=== PATIENT | female | born 1935 ===

== ENCOUNTER 2016-09-30 12:41 | Emergency (ER) | payer MEDICARE, OTHER ==
[2016-09-30 12:42] VITALS: PULSE 63
[2016-09-30 12:46] VITALS: BMI 30.4
[2016-09-30 12:51] VITALS: TEMP 97.8; O2SAT 98
--- NOTE | 2016-09-30 13:59 | C.PDOC ---
History Of Present Illness 81 y/o female presents to the ED complaining of right lower extremity pain x 1 week. She states that she tripped and fell, landing on her right knee one week ago and she has been experiencing persistent pain and bruising ever since. Denies head injury, chest pain, shortness of breath, dizziness, or loss of consciousness at any time. Notes she is on Xarelto. Chief Complaint (Nursing): Lower Extremity Problem/Injury History Per: Patient History/Exam Limitations: no limitations Onset/Duration Of Symptoms: Days (7), Persistent Current Symptoms Are (Timing): Still Present Recent travel outside of the [place]: No Past Medical History Reviewed: Historical Data, Nursing Documentation, Vital Signs Vital Signs: Last Vital Signs Temp 97.8 F 09/30/16 12:47 Pulse 82 09/30/16 14:54 Resp 18 09/30/16 14:54 BP 142/88 09/30/16 14:54 Pulse Ox 98 09/30/16 14:54 - Medical History PMH: Atrial Fibrillation, Cardia Arrhythmia, Hiatal Hernia, HTN, Hyperthyroidism , Hypothyroidism Surgical History: Hernia Repair Family History: States: Unknown Family Hx - Social History Hx Tobacco Use: No Hx Alcohol Use: No Hx Substance Use: No - Immunization History Hx Tetanus Toxoid Vaccination: No Hx Influenza Vaccination: No Hx Pneumococcal Vaccination: No Review Of Systems Except As Marked, All Systems Reviewed And Found Negative. Cardiovascular: Negative for: Chest Pain Respiratory: Negative for: Shortness of Breath Musculoskeletal: Positive for: Other (right knee pain and bruising) Neurological: Negative for: Dizziness, Other (LOC) Physical Exam - Physical Exam Appears: Non-toxic, No Acute Distress Skin: Warm, Dry Head: Atraumatic, Normacephalic Eye(s): bilateral: Normal Inspection, PERRL, EOMI Neck: Normal ROM, Supple Chest: Symmetrical Cardiovascular: Rhythm Regular Respiratory: Normal Breath Sounds, No Rales, No Rhonchi, No Wheezing Gastrointestinal/Abdominal: Normal Exam, Bowel Sounds, Soft, No Tenderness Extremity: Tenderness (point tenderness to right patella and distal tibia area) , No Deformity, Swelling (2+ lower extremity edema bilaterally), Other ( ecchymosis to anterior portion of the distal right knee with various areas of healing; no abrasions or open wounds) Pulses: Left Dorsalis Pedis: Normal, Right Dorsalis Pedis: Normal Neurological/Psych: Oriented x3, Normal Speech, Normal Cognition, Normal Sensation ED Course And Treatment O2 Sat by Pulse Oximetry: 98 (ra) Pulse Ox Interpretation: Normal - Other Rad X-Ray, Right Ankle X-Ray: Viewed By Me, Read By Radiologist (Jaun Alejo MD) Interpretation: IMPRESSION: Soft tissue swelling without acute articular or osseous abnormality. X-Ray, Right Knee X-Ray: Viewed By Me, Read By Radiologist (Jaun Alejo MD) Interpretation: IMPRESSION: Diffuse edema visualized right lower extremity. No acute findings. X-Ray, Right Tibia Fibula X-Ray: Viewed By Me, Read By Radiologist (Jaun Alejo MD) Interpretation: IMPRESSION: Negative study for acute fracture/acute osseous or articular process. Progress Note: Plan: Right Knee X-Ray, Right Ankle X-Ray, Right Tibia Fibula X- Ray, Motrin PO. Disposition - Disposition Referrals: [facility] Silas Weber, [Non-Staff] - Disposition: HOME/ ROUTINE Disposition Time: 14:50 Condition: GOOD Additional Instructions: Thank you for letting us take care of you today. Your provider was Dr. Watson. You were treated for leg pain. The emergency medical care you received today was directed at your acute symptoms. If you were prescribed any medication, please fill it and take as directed. It may take several days for your symptoms to resolve. Return to the Emergency Department if your symptoms worsen, do not improve, or if you have any other problems. Please contact your doctor or call one of the physicians/clinics you have been referred to that are listed on the Patient Visit Information form that is included in your discharge packet. Bring any paperwork you were given at discharge with you along with any medications you are taking to your follow up visit. Our treatment cannot replace ongoing medical care by a primary care provider (PCP) outside of the emergency department. Thank you for allowing the [facility] team to be part of your care today. Follow up with your doctor in 3-4 days to be re-evaluated. Continue taking your medication as prescribed. Prescriptions: Ibuprofen [Motrin] 600 mg PO Q6 PRN #20 tab PRN Reason: Pain, Moderate (4-7) Instructions: Knee Pain (ED) - Clinical Impression Clinical Impression: Leg pain - Scribe Statement The provider has reviewed the documentation as recorded by the Scribe (Heaven Obrien) Provider Attestation: All medical record entries made by the Scribe were at my direction and personally dictated by me. I have reviewed the chart and agree that the record accurately reflects my personal performance of the history, physical exam, medical decision making, and the department course for this patient. I have also personally directed, reviewed, and agree with the discharge instructions and disposition.
--- NOTE | 2016-09-30 14:38 | RAD ---
PROCEDURE: Right Ankle Radiographs. HISTORY: Unspecified lower extremity trauma 1 week ago. COMPARISON: None FINDINGS: BONES: No acute fractures. Plantar calcaneal spur. JOINTS: Normal. No osteoarthritis. Ankle mortise maintained. Talar dome intact SOFT TISSUES: Diffuse edema of visualize soft tissues from the mid calf through the foot. OTHER FINDINGS: None. IMPRESSION: Soft tissue swelling without acute articular or osseous abnormality.
--- NOTE | 2016-09-30 14:39 | RAD ---
PROCEDURE: Right Knee Radiographs. HISTORY: r/o fx COMPARISON: September 30, 2016. FINDINGS: BONES: Proliferative hypertrophic changes emanating from the femoral condyle and tibial plateau JOINTS: Medial lateral compartment degenerative change with relative sparing of the patellofemoral joint. JOINT EFFUSION: None. OTHER FINDINGS: Diffuse lower extremity edema IMPRESSION: Diffuse edema visualized right lower extremity. No acute findings.
--- NOTE | 2016-09-30 14:40 | RAD ---
PROCEDURE: HISTORY: r/o fx COMPARISON: September 30, 2016. TECHNIQUE: Standard protocol for this study/examination. FINDINGS: Unremarkable visualized osseous structures including tibia and fibula. Diffuse lower extremity edema. IMPRESSION: Negative study for acute fracture/acute osseous or articular process.
[2016-09-30 14:55] VITALS: BP 142/88; PULSE 82; RESP 18
== END 2016-09-30 15:27 | disposition home or self-care (01) ==
LOC: C.ER 12:41
DX: M25.561 Pain in right knee (principal)

== ENCOUNTER 2016-11-23 11:13 | Emergency (ER) | payer MEDICARE, OTHER ==
[2016-11-23 11:13] VITALS: PULSE 63; BMI 30.4
[2016-11-23 11:17] VITALS: RESP 18; TEMP 98.2
--- NOTE | 2016-11-23 11:39 | C.PDOC ---
History Of Present Illness Patient is a 81 y/o female that presents to the ED for evaluation of dysuria and urinary frequency for the last 2 days. Patient reports having similar symptoms in the past, and was diagnosed with UTI at the time. Otherwise, denies any fever, vomiting, back pain, vaginal discharge, vaginal bleeding, or any other associated symptoms at this time. Language barrier, dog food shredder operator was used. Time Seen by Provider: 11/23/16 11:29 Chief Complaint (Nursing): Abdominal Pain History Per: Patient History/Exam Limitations: language barrier (dog food shredder operator used) Onset/Duration Of Symptoms: Days (2) Current Symptoms Are (Timing): Still Present Radiation Of Pain To:: None Associated Symptoms: Urinary Symptoms. denies: Fever, Chills, Nausea, Vomiting , Diarrhea, Loss Of Appetite, Back Pain, Chest Pain, Constipation Exacerbating Factors: None Alleviating Factors: None Recent travel outside of the [place]: No Additional History Per: Patient Abnormal Vaginal Bleeding: No Past Medical History Reviewed: Historical Data, Nursing Documentation, Vital Signs Vital Signs: Last Vital Signs Temp 98.2 F 11/23/16 11:15 Pulse 80 11/23/16 13:01 Resp 18 11/23/16 13:01 BP 138/74 11/23/16 13:01 Pulse Ox 97 11/23/16 13:36 - Medical History PMH: Atrial Fibrillation, Cardia Arrhythmia, Hiatal Hernia, HTN, Hyperthyroidism , Hypothyroidism Denies: Chronic Kidney Disease Surgical History: Hernia Repair Family History: States: Unknown Family Hx - Social History Hx Tobacco Use: No Hx Alcohol Use: No Hx Substance Use: No - Immunization History Hx Tetanus Toxoid Vaccination: No Hx Influenza Vaccination: No Hx Pneumococcal Vaccination: No Review Of Systems Except As Marked, All Systems Reviewed And Found Negative. Constitutional: Negative for: Fever, Chills Gastrointestinal: Negative for: Nausea, Vomiting, Abdominal Pain, Diarrhea, Constipation Genitourinary: Positive for: Dysuria, Frequency. Negative for: Incontinence, Hematuria, Vaginal Discharge, Vaginal Bleeding, Pelvic Pain Musculoskeletal: Negative for: Back Pain Physical Exam - Physical Exam Appears: Non-toxic, No Acute Distress Skin: Normal Color, Warm, Dry Head: Atraumatic, Normacephalic Eye(s): bilateral: Normal Inspection, EOMI Nose: Normal Neck: Normal ROM, Supple Chest: Symmetrical, No Tenderness Cardiovascular: Rhythm Regular, No Murmur Respiratory: Normal Breath Sounds, No Rales, No Rhonchi, No Wheezing Gastrointestinal/Abdominal: Soft, Tenderness (suprapubic), No Guarding, No Rebound Back: Normal Inspection, No CVA Tenderness Extremity: Normal ROM Neurological/Psych: Oriented x3, Normal Speech ED Course And Treatment - Laboratory Results Result Diagrams: 11/23/16 11:51 11/23/16 11:51 O2 Sat by Pulse Oximetry: 97 (on RA) Pulse Ox Interpretation: Normal Progress Note: Previous visit from 08/13/16 reviewed which shows diagnosis of UTI , cultures show sensitivity to Macrobid , grew ecoli. Labs ordered and reviewed. Patient was given Toradol, Macrobid, and Pyridium. On re-eval, pt is resting comfortably, no acuted distress. Abdomen remains soft. Notes improvement of symptoms. Discussed concern for frequent UTI, and instructed patient to follow up with urologist. Disposition - Disposition Referrals: Ray Swann MD [Staff Provider] - Disposition: HOME/ ROUTINE Disposition Time: 12:39 Condition: STABLE Additional Instructions: Vaya a cintron mdico o la clnica en 2-5 delacruz sin falta, para mas evaluacin. Formoso los medicamentos isa indicado. Volver a la christiana de emergencia en cualquier momento si los sntomas persisten o empeoran. 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 - Scribe Statement The provider has reviewed the documentation as recorded by the Christine Nath All medical record entries made by the Christine were at my direction and personally dictated by me. I have reviewed the chart and agree that the record accurately reflects my personal performance of the history, physical exam, medical decision making, and the department course for this patient. I have also personally directed, reviewed, and agree with the discharge instructions and disposition.
[2016-11-23 12:03] LABS: CHLORIDE 100 mmol/L (98-107); EOS # 0.1 K/uL (0.0-0.7); LYMPH # 1.3 K/uL (1.0-4.3); MEAN CORPUSCULAR HEMOGLOBIN 30.3 pg (27.0-31.0); MONO # 0.8 K/uL (0.0-0.8); POTASSIUM 4.3 mmol/L (3.6-5.2); SODIUM 136 mmol/L (132-148)
[2016-11-23 12:05] LABS: GFR AFRICAN-AMERICAN > 60
[2016-11-23 12:06] LABS: ALB/GLOB RATIO 1.6 (1.0-2.1); ALKALINE PHOSPHATASE 99 U/L (38-126); ALT/SGPT 28 U/L (9-52); AST/SGOT 22 U/L (14-36); BILIRUBIN,TOTAL 1.2 mg/dL (0.2-1.3); BLOOD UREA NITROGEN 19 mg/dL (7-17); CALCIUM 9.6 mg/dl (8.6-10.4); CARBON DIOXIDE 27 mmol/L (22-30); GLUCOSE,RANDOM 84 mg/dL (65-105); TOTAL PROTEIN 6.9 g/dL (6.3-8.3)
[2016-11-23 12:08] LABS: BASO # 0.1 K/uL (0.0-0.2); BASO % 0.6 % (0.0-2.0); EOS % 1.4 % (0.0-4.0); HEMATOCRIT 44.5 % (34.0-47.0); LYMPH % 14.6 % (20.0-40.0); MEAN CELL VOLUME 91.6 fL (81.0-99.0); MEAN CORPUSCULAR HGB CONC 33.1 g/dL (33.0-37.0); MEAN PLATELET VOLUME 9.8 fL (7.2-11.7); MONO % 9.3 % (0.0-10.0); NRBC % 0.1 % (0.0-2.0); RED CELL DISTRIBUTION WIDTH 13.6 % (11.5-14.5)
[2016-11-23 12:35] LABS: RBC URINE 21 /hpf (0-3); URINE BACTERIA RARE (<OCC); URINE BILIRUBIN NEGATIVE (NEGATIVE); URINE BLOOD 2+ (NEGATIVE); URINE COLOR Yellow (YELLOW); URINE GLUCOSE (UA) NORMAL (Normal); URINE KETONE NEGATIVE (NEGATIVE); URINE LEUKOCYTE ESTERASE 3+ Leu/uL (Negative); URINE PROTEIN NEGATIVE (NEGATIVE); URINE UROBILINOGEN NORMAL mg/dL (0.2-1.0); WBC CLUMPS FEW /hpf; WBC URINE 1001 /hpf (0-5)
[2016-11-23 13:02] VITALS: BP 138/74; PULSE 80
[2016-11-23 13:25] VITALS: O2SAT 97
== END 2016-11-23 13:02 | disposition home or self-care (01) ==
LOC: C.ER 11:13
DX: N39.0 Urinary tract infection, site not specified (principal); B96.20 Unspecified Escherichia coli [E. coli] as the cause of diseases classified elsewhere
CPT/HCPCS: 80053; 81001; 85025; 87086; 96374; 99284; J1885

== ENCOUNTER 2017-04-02 10:40 | Emergency (ER) | payer MEDICARE, OTHER ==
[2017-04-02 10:40] VITALS: PULSE 63
[2017-04-02 10:44] VITALS: BMI 29.5
[2017-04-02 10:47] VITALS: TEMP 98.1
[2017-04-02] MEDS ORDERED: Sodium Chloride 0.9% 1,000 ML IV ONE (11:11)
[2017-04-02] MEDS ORDERED: Iohexol 240 (50 ml) PO STA (11:11)
--- NOTE | 2017-04-02 11:11 | C.PDOC ---
History Of Present Illness 81 yr old female presents to the ER RUQ pain for the past several days. Patient states the pain is waxing/waning and localized, associated with nausea. Patient denies fever, chest pain, SOB, vomiting, diarrhea, constipation, dysuria, incontinence, back pain, weakness or numbness. RUQ PAIN X SEV DAYS. WAX WANE LOCALIZED. +NAUSEA NO FEVER. PSH APPY EXAM MILD DIST NONTOXIC HEENT ANICTERIC MMM ABD +RUQ/EPIG TEND SOFT NO R/G REMAINDER NEG Time Seen by Provider: 04/02/17 11:03 Chief Complaint (Nursing): Abdominal Pain History Per: Patient History/Exam Limitations: no limitations Onset/Duration Of Symptoms: Days, Waxing/Waning Current Symptoms Are (Timing): Still Present Location Of Pain/Discomfort: RUQ Past Medical History Reviewed: Historical Data, Nursing Documentation, Vital Signs Vital Signs: Last Vital Signs Temp 98.1 F 04/02/17 10:45 Pulse 70 04/02/17 11:30 Resp 18 04/02/17 11:30 BP 163/79 H 04/02/17 11:30 Pulse Ox 97 04/02/17 12:10 - Medical History PMH: Atrial Fibrillation, Cardia Arrhythmia, Hiatal Hernia, HTN, Hyperthyroidism , Hypothyroidism Surgical History: Hernia Repair Family History: States: No Known Family Hx - Social History Hx Tobacco Use: No Hx Alcohol Use: No Hx Substance Use: No - Immunization History Hx Tetanus Toxoid Vaccination: No Hx Influenza Vaccination: No Hx Pneumococcal Vaccination: No Review Of Systems Except As Marked, All Systems Reviewed And Found Negative. Constitutional: Negative for: Fever Cardiovascular: Negative for: Chest Pain Respiratory: Negative for: Shortness of Breath Gastrointestinal: Positive for: Nausea, Abdominal Pain (RUQ). Negative for: Vomiting, Diarrhea, Constipation Genitourinary: Negative for: Dysuria, Incontinence Musculoskeletal: Negative for: Back Pain Neurological: Negative for: Weakness, Numbness Physical Exam - Physical Exam Appears: Non-toxic, In Acute Distress (Mild) Skin: Warm, Dry, No Rash Head: Atraumatic, Normacephalic Eye(s): bilateral: Normal Inspection, PERRL, EOMI Oral Mucosa: Moist Chest: Symmetrical, No Tenderness Cardiovascular: Rhythm Regular, No Murmur Respiratory: Normal Breath Sounds, No Rales, No Rhonchi, No Stridor, No Wheezing Gastrointestinal/Abdominal: Soft, Tenderness (RUQ/Epigastric tednerness), No Guarding, No Rebound Back: Normal Inspection, No CVA Tenderness Extremity: Normal ROM, No Swelling Neurological/Psych: Oriented x3, Normal Speech, Normal Motor, Normal Sensation ED Course And Treatment - Laboratory Results Result Diagrams: 04/02/17 11:25 04/02/17 11:25 ECG: Interpreted By Me, Viewed By Me ECG Rhythm: Atrial Fibrillation Rate From EC (BPM) O2 Sat by Pulse Oximetry: 97 (RA) Pulse Ox Interpretation: Normal - Radiology CXR: Interpreted by Me, Viewed By Me CXR Interpretation: Yes: Cardiomegaly - CT Scan/US CT - Abd & Pelvis Other Rad Studies (CT/US): Read By Radiologist, Radiology Report Reviewed US - Abdomen Other Rad Studies (CT/US): Read By Radiologist, Radiology Report Reviewed Progress - Data Reviewed Data Reviewed: Lab, Diagnostic imaging, EKG, Old records Medical Decision Making Medical Decision Making: PLAN: * CT - Abd & Pelvis * US - Abdomen * CXR * EKG * CBC * CMP * Urinalysis * Morphine IVP * Zofran IVP * Sodium Chloride IV Disposition - Disposition Disposition Time: 14:00 Condition: STABLE Forms: [employer] (Puerto Rican) - Clinical Impression Clinical Impression: Abdominal pain - Scribe Statement The provider has reviewed the documentation as recorded by the Efremibmanish Victoria Provider Attestation: All medical record entries made by the Scribe were at my direction and personally dictated by me. I have reviewed the chart and agree that the record accurately reflects my personal performance of the history, physical exam, medical decision making, and the department course for this patient. I have also personally directed, reviewed, and agree with the discharge instructions and disposition. Physician Patient Turnover Patient Signed Over To: Caesar Carbajal Handoff Comments: FU CT, US, DISPO
[2017-04-02] MEDS ORDERED: Iohexol 240 (50 ml) ONE (11:18)
[2017-04-02 11:32] LABS: BASO # 0.1 K/uL (0.0-0.2); BASO % 1.2 % (0.0-2.0); EOS # 0.1 K/uL (0.0-0.7); EOS % 1.5 % (0.0-4.0); HEMATOCRIT 43.7 % (34.0-47.0); LYMPH # 0.9 K/uL (1.0-4.3); LYMPH % 18.6 % (20.0-40.0); MEAN CORPUSCULAR HEMOGLOBIN 32.7 pg (27.0-31.0); MEAN CORPUSCULAR HGB CONC 34.2 g/dL (33.0-37.0); MEAN PLATELET VOLUME 9.8 fL (7.2-11.7); MONO # 0.5 K/uL (0.0-0.8); MONO % 10.8 % (0.0-10.0); RED CELL DISTRIBUTION WIDTH 13.3 % (11.5-14.5); WHITE BLOOD COUNT 4.7 K/uL (4.8-10.8)
[2017-04-02 11:33] LABS: MEAN CELL VOLUME 95.8 fL (81.0-99.0)
[2017-04-02 11:43] LABS: CHLORIDE 103 mmol/L (98-107); RBC URINE 1 /hpf (0-3); SODIUM 135 mmol/L (132-148); URINE BILIRUBIN NEGATIVE (NEGATIVE); URINE BLOOD 1+ (NEGATIVE); URINE COLOR Yellow (YELLOW); URINE GLUCOSE (UA) NORMAL (Normal); URINE KETONE NEGATIVE (NEGATIVE); URINE LEUKOCYTE ESTERASE NEG Leu/uL (Negative); URINE PROTEIN 1+ mg/dL (NEGATIVE); URINE UROBILINOGEN NORMAL mg/dL (0.2-1.0); WBC URINE 1 /hpf (0-5)
[2017-04-02 11:45] LABS: BILIRUBIN,TOTAL 1.3 mg/dL (0.2-1.3); CARBON DIOXIDE 20 mmol/L (22-30); GFR AFRICAN-AMERICAN > 60
[2017-04-02 11:46] LABS: ALKALINE PHOSPHATASE 87 U/L (38-126); ALT/SGPT 36 U/L (9-52); AST/SGOT 23 U/L (14-36); BLOOD UREA NITROGEN 13 mg/dL (7-17); CALCIUM 9.2 mg/dl (8.6-10.4); GLUCOSE,RANDOM 85 mg/dL (65-105); TOTAL PROTEIN 6.4 g/dL (6.3-8.3)
--- NOTE | 2017-04-02 12:02 | RAD ---
HISTORY: abd pain COMPARISON: Chest x-ray performed 08/25/15 TECHNIQUE: Chest, one view. FINDINGS: LUNGS: Biapical pleural thickening. Mild bibasilar atelectasis. Please note that chest x-ray has limited sensitivity for the detection of pulmonary masses. PLEURA: No significant pleural effusion identified. No definite pneumothorax . CARDIOVASCULAR: Enlarged cardiomediastinal silhouette as on prior study. Atherosclerotic calcifications of the aorta. OSSEOUS STRUCTURES: Osseous demineralization. Degenerative changes. Scoliosis. VISUALIZED UPPER ABDOMEN: Unremarkable. OTHER FINDINGS: None. IMPRESSION: Biapical pleural thickening. Mild bibasilar atelectasis. Enlarged cardiomediastinal silhouette. Atherosclerotic calcifications of the aorta.
[2017-04-02] MEDS ORDERED: Iodixanol 320 MG/ML 100 ML BOTTLE IV ONE (13:11)
--- NOTE | 2017-04-02 14:09 | CT ---
PROCEDURE: CT Abdomen and Pelvis with oral and IV contrast. HISTORY: abd pain RO OBSTRUCT COMPARISON: CT abdomen and pelvis with contrast performed 08/25/15 TECHNIQUE: Contiguous axial images of the abdomen and pelvis. Oral and IV contrast was administered. Coronal and Sagittal reformats generated and reviewed. Contrast dose: 100 cc Visipaque 320 Radiation dose: Total exam DLP = 505.14 mGy-cm. This CT exam was performed using one or more of the following dose reduction techniques: Automated exposure control, adjustment of the mA and/or kV according to patient size, and/or use of iterative reconstruction technique. FINDINGS: LOWER THORAX: Minimal bibasilar atelectasis. No visible pleural effusion or pneumothorax. Partially imaged cardiomegaly. LIVER: Unremarkable. GALLBLADDER AND BILE DUCTS: Cholelithiasis. PANCREAS: Unremarkable. SPLEEN: 12 mm and 10 mm probable splenules. Otherwise unremarkable. ADRENALS: Unremarkable. KIDNEYS AND URETERS: The kidneys enhance symmetrically. No hydronephrosis or obstructing renal calculus. BLADDER: The urinary bladder appears unremarkable. REPRODUCTIVE: Uterus is absent consistent with hysterectomy. APPENDIX: Not visualized. No secondary signs of acute appendicitis. BOWEL: The stomach is nondistended. The bowel loops appear within normal limits of caliber without evidence of intestinal obstruction. A band of low-density is re-identified within the anterior abdomen, of uncertain significance but slightly decreased in extent as compared to prior study. Small defect involving the left rectus sheath versus marked thinning without juan j herniation evident. Rectus diastases. Small fat containing right lateral abdominal hernia. PERITONEUM: No significant free fluid. No definite free air. LYMPH NODES: No bulky lymphadenopathy identified. VASCULATURE: No aortic aneurysm. BONES: Scoliosis. Degenerative changes. Osseous demineralization. OTHER FINDINGS: Fat containing right lateral abdominal hernia. IMPRESSION: No small bowel obstruction. Small defect involving the left rectus sheath versus marked thinning without juan j herniation evident. Rectus diastases. Small fat containing right lateral abdominal hernia. Cholelithiasis. Additional findings as above.
--- NOTE | 2017-04-02 14:20 | US ---
HISTORY: abd pain RUQ COMPARISON: CT abdomen and pelvis with contrast performed the same day. TECHNIQUE: Sonographic evaluation of the right upper quadrant of the abdomen. FINDINGS: LIVER: Measures 18.2 cm in length and appears unremarkable. No focal hepatic mass identified. The main portal vein appears patent with normal directional flow. GALLBLADDER: Cholelithiasis. Gallbladder wall appears mildly thickened measuring approximately 4 mm. Negative sonographic De Guzman's sign as assessed by the residential air sealing technician. COMMON BILE DUCT: Measures 4 mm. Minimal intrahepatic biliary ductal dilatation. PANCREAS: Not well-visualized. RIGHT KIDNEY: Measures 12.1 x 4.4 x 4.3 cm. No obstructing calculus or hydronephrosis identified. AORTA: Limited visualization appears grossly unremarkable. IVC: Limited visualization appears grossly unremarkable. OTHER FINDINGS: None . IMPRESSION: Cholelithiasis. Gallbladder wall appears mildly thickened measuring approximately 4 mm. Negative sonographic De Guzman's sign as assessed by the residential air sealing technician. Suspected minimal intrahepatic biliary ductal dilatation on ultrasound is not appreciated on CT performed concurrently.
[2017-04-02 16:13] VITALS: BP 168/92; PULSE 69; RESP 18; O2SAT 93
--- NOTE | 2017-04-04 10:28 | CARD ---
APPROVED REPORT EKG Measurement Heart [id number] <Conclusion> Atrial fibrillation Minimal voltage criteria for LVH, may be normal variant Abnormal ECG
== END 2017-04-02 16:42 | disposition home or self-care (01) ==
LOC: C.ER 10:40
DX: K80.20 Calculus of gallbladder without cholecystitis without obstruction (principal); R10.11 Right upper quadrant pain
CPT/HCPCS: 71010; 74177; 76705; 80053; 81001; 83690; 85025; 96361; 96374; 96375; 99285; J2270; J2405; J7040; Q9966; Q9967

== ENCOUNTER 2017-05-08 09:00 | Emergency (ER) | payer MEDICARE, OTHER ==
[2017-05-08 09:01] VITALS: PULSE 63; BMI 29.5
[2017-05-08 09:04] VITALS: TEMP 97.7; O2SAT 98
[2017-05-08] MEDS ORDERED: Sodium Chloride 0.9% 1,000 ML IV STA (09:25)
--- NOTE | 2017-05-08 09:37 | C.PDOC ---
History Of Present Illness 82 year old female, with PMHx of hernia, presents to ED for evaluation of generalized abdominal pain associated with nausea, vomiting, and diarrhea for the past 2-3 days. Pt states that she not been able to get her hernia surgically repaired. Notes pain is worse with movement and deep breathing. Denies any fever, or other complaints. Chief Complaint (Nursing): Abdominal Pain History Per: Patient History/Exam Limitations: no limitations Onset/Duration Of Symptoms: Days Current Symptoms Are (Timing): Still Present Location Of Pain/Discomfort: Diffuse Radiation Of Pain To:: None Quality Of Discomfort: "Pain" Associated Symptoms: Nausea, Vomiting, Diarrhea. denies: Loss Of Appetite, Back Pain, Chest Pain, Constipation, Urinary Symptoms Exacerbating Factors: None Alleviating Factors: None Recent travel outside of the [place]: No Additional History Per: Patient Abnormal Vaginal Bleeding: No Past Medical History Reviewed: Historical Data, Nursing Documentation, Vital Signs Vital Signs: Last Vital Signs Temp 97.7 F 05/08/17 09:04 Pulse 86 05/08/17 13:14 Resp 20 05/08/17 13:14 BP 169/78 H 05/08/17 13:14 Pulse Ox 98 05/08/17 13:14 - Medical History PMH: Atrial Fibrillation, Cardia Arrhythmia, Hiatal Hernia, HTN, Hyperthyroidism , Hypothyroidism Denies: Chronic Kidney Disease Surgical History: Hernia Repair Family History: States: Unknown Family Hx - Social History Hx Tobacco Use: No Hx Alcohol Use: No Hx Substance Use: No - Immunization History Hx Tetanus Toxoid Vaccination: No Hx Influenza Vaccination: No Hx Pneumococcal Vaccination: No Review Of Systems Except As Marked, All Systems Reviewed And Found Negative. Constitutional: Negative for: Fever, Chills Cardiovascular: Negative for: Chest Pain, Palpitations Respiratory: Negative for: Shortness of Breath Gastrointestinal: Positive for: Nausea, Vomiting, Abdominal Pain, Diarrhea Genitourinary: Negative for: Dysuria, Frequency, Hematuria Musculoskeletal: Negative for: Back Pain Neurological: Negative for: Headache, Dizziness Physical Exam - Physical Exam Appears: Non-toxic, No Acute Distress Skin: Normal Color, Warm, Dry Head: Atraumatic, Normacephalic Eye(s): bilateral: Normal Inspection Cardiovascular: Rhythm Irregular (irregularly irregular) Respiratory: Normal Breath Sounds, No Rales, No Rhonchi, No Wheezing Gastrointestinal/Abdominal: Bowel Sounds (normal), Soft, Tenderness (mild diffuse, right side more than left), Distention, No Guarding, No Rebound, Hernia (reducible ventral hernia), Other (abdominal scar from previous hernia surgery) Back: No CVA Tenderness Extremity: Normal ROM Neurological/Psych: Oriented x3, Normal Speech ED Course And Treatment - Laboratory Results Result Diagrams: 05/08/17 09:46 05/08/17 09:46 ECG: Interpreted By Me, Viewed By Me ECG Rhythm: Atrial Fibrillation, Nonspecific Changes ECG Interpretation: No Changes From Prior O2 Sat by Pulse Oximetry: 98 Pulse Ox Interpretation: Normal - CT Scan/US Abd & pelvis CT Other Rad Studies (CT/US): Read By Radiologist, Radiology Report Reviewed CT/US Interpretation: Accession No. : [id number]. Patient Name / ID : RADHA BONNER / [id number]. Exam Date : 05/08/2017 12:02:02 ( Approved ). Study Comment : Sex / Age : F / 82Y. Creator : Lacey Clark. Dictator : Rona Powell MD. Azure Principal Solution Specialist : Sugar Cane Planter : Rona Powell MD. Approver2 : Report Date : 05/08/2017 12:19:58. My Comment : . PROCEDURE: CT Abdomen and Pelvis with contrast. HISTORY: obstruction. COMPARISON: CT abdomen pelvis with contrast performed 04/02/17. TECHNIQUE: Contrast dose: 790.82. Radiation dose: Total exam DLP = 790.82 MGy-cm. This CT exam was performed using one or more of the following dose reduction techniques: Automated exposure control, adjustment of the mA and/or kV according to patient size, and/or use of iterative reconstruction technique. FINDINGS: LOWER THORAX : Moderate bilateral pleural effusions. No visible pleural effusion. Partially imaged marked cardiomegaly. Small to moderate hiatal hernia. LIVER: Nodular hepatic contour. Hypoattenuation of the liver compatible with hepatic steatosis. GALLBLADDER AND BILE DUCTS: Cholelithiasis. Pericholecystic edema/ wall thickening. PANCREAS: Unremarkable. SPLEEN: 12 mm and 11 mm splenules. Otherwise unremarkable. ADRENALS: Unremarkable. KIDNEYS AND URETERS: The kidneys enhance symmetrically. No hydronephrosis or obstructing calculus identified. VASCULATURE: Atherosclerotic calcifications. No aortic aneurysm. BOWEL: The stomach is nondistended. The bowel loops appear within normal limits of caliber without evidence of intestinal obstruction. A band of low- density is re-identified within the anterior abdomen, of uncertain significance similar to prior study. Small defect involving the left rectus sheath versus marked thinning without juan j herniation evident. Rectus diastases. Small fat containing right lateral abdominal hernia. Moderate constipation. APPENDIX: The appendix is not identified. No secondary signs of acute appendicitis. PERITONEUM: Small free fluid. No definite free air. LYMPH NODES: No bulky adenopathy identified. BLADDER: Unremarkable. REPRODUCTIVE: Hysterectomy. BONES: Osseous demineralization. Degenerative changes. OTHER FINDINGS: Fat containing right inguinal hernia. IMPRESSION: Cholelithiasis. Pericholecystic edema/wall thickening. Correlate clinically. Nodular hepatic contour. Hypoattenuation of the liver compatible with hepatic steatosis. Small defect involving the left rectus sheath versus marked thinning without juan j herniation evident. Rectus diastases. Small fat containing right lateral abdominal hernia. Small free fluid. Moderate pleural effusions. Partially imaged marked cardiomegaly. Additional findings as above. Medical Decision Making Medical Decision Making: Blood work, EKG, Abd & Pelvis CT scan ordered and reviewed. Pt was given IV fluids. Disposition Counseled Patient/Family Regarding: Studies Performed - Disposition Disposition: HOME/ ROUTINE Disposition Time: 13:00 Condition: STABLE Instructions: Ventral Hernia (ED) Forms: [facility] (Vietnamese), Gen Discharge Inst Qatari - Clinical Impression Clinical Impression: Hernia of abdominal wall, Abdominal wall pain - Scribe Statement The provider has reviewed the documentation as recorded by the Efremibmanish Nath All medical record entries made by the Efremibmanish were at my direction and personally dictated by me. I have reviewed the chart and agree that the record accurately reflects my personal performance of the history, physical exam, medical decision making, and the department course for this patient. I have also personally directed, reviewed, and agree with the discharge instructions and disposition.
[2017-05-08 09:53] LABS: BASO # 0.1 K/uL (0.0-0.2); BASO % 0.9 % (0.0-2.0); EOS # 0.2 K/uL (0.0-0.7); EOS % 3.9 % (0.0-4.0); HEMATOCRIT 43.8 % (34.0-47.0); LYMPH # 0.7 K/uL (1.0-4.3); LYMPH % 12.4 % (20.0-40.0); MEAN CELL VOLUME 94.2 fL (81.0-99.0); MEAN CORPUSCULAR HEMOGLOBIN 30.7 pg (27.0-31.0); MEAN CORPUSCULAR HGB CONC 32.5 g/dL (33.0-37.0); MEAN PLATELET VOLUME 9.6 fL (7.2-11.7); MONO # 0.7 K/uL (0.0-0.8); MONO % 11.9 % (0.0-10.0); NRBC % 0.1 % (0.0-2.0); RED CELL DISTRIBUTION WIDTH 13.4 % (11.5-14.5); WHITE BLOOD COUNT 5.9 K/uL (4.8-10.8)
[2017-05-08 10:07] LABS: ALKALINE PHOSPHATASE 105 U/L (38-126); ALT/SGPT 40 U/L (9-52); AST/SGOT 32 U/L (14-36); BILIRUBIN,TOTAL 2.4 mg/dL (0.2-1.3); BLOOD UREA NITROGEN 16 mg/dL (7-17); CALCIUM 8.7 mg/dl (8.6-10.4); CARBON DIOXIDE 28 mmol/L (22-30); CHLORIDE 106 mmol/L (98-107); GFR AFRICAN-AMERICAN > 60; GLUCOSE,RANDOM 92 mg/dL (65-105); POTASSIUM 3.8 mmol/L (3.6-5.2); SODIUM 139 mmol/L (132-148); TOTAL PROTEIN 6.1 g/dL (6.3-8.3)
[2017-05-08] MEDS ORDERED: Sodium Chloride 0.9% 1,000 ML ONE (10:10)
[2017-05-08 10:14] LABS: ALB/GLOB RATIO 1.6 (1.0-2.1)
[2017-05-08] MEDS ORDERED: Iodixanol 320 MG/ML 100 ML BOTTLE IV ONE (11:43)
--- NOTE | 2017-05-08 13:03 | CT ---
PROCEDURE: CT Abdomen and Pelvis with contrast HISTORY: obstruction COMPARISON: CT abdomen pelvis with contrast performed 04/02/17 TECHNIQUE: Contrast dose: 790.82 Radiation dose: Total exam DLP = 790.82 MGy-cm. This CT exam was performed using one or more of the following dose reduction techniques: Automated exposure control, adjustment of the mA and/or kV according to patient size, and/or use of iterative reconstruction technique. FINDINGS: LOWER THORAX: Moderate bilateral pleural effusions. No visible pleural effusion. Partially imaged marked cardiomegaly. Small to moderate hiatal hernia. LIVER: Nodular hepatic contour. Hypoattenuation of the liver compatible with hepatic steatosis. GALLBLADDER AND BILE DUCTS: Cholelithiasis. Pericholecystic edema/wall thickening. PANCREAS: Unremarkable. SPLEEN: 12 mm and 11 mm splenules. Otherwise unremarkable ADRENALS: Unremarkable. KIDNEYS AND URETERS: The kidneys enhance symmetrically. No hydronephrosis or obstructing calculus identified. VASCULATURE: Atherosclerotic calcifications. No aortic aneurysm. BOWEL: The stomach is nondistended. The bowel loops appear within normal limits of caliber without evidence of intestinal obstruction. A band of low-density is re-identified within the anterior abdomen, of uncertain significance similar to prior study. Small defect involving the left rectus sheath versus marked thinning without juan j herniation evident. Rectus diastases. Small fat containing right lateral abdominal hernia. Moderate constipation. APPENDIX: The appendix is not identified. No secondary signs of acute appendicitis. PERITONEUM: Small free fluid. No definite free air. LYMPH NODES: No bulky adenopathy identified. BLADDER: Unremarkable. REPRODUCTIVE: Hysterectomy. BONES: Osseous demineralization. Degenerative changes. OTHER FINDINGS: Fat containing right inguinal hernia. IMPRESSION: Cholelithiasis. Pericholecystic edema/wall thickening. Correlate clinically. Nodular hepatic contour. Hypoattenuation of the liver compatible with hepatic steatosis. Small defect involving the left rectus sheath versus marked thinning without juan j herniation evident. Rectus diastases. Small fat containing right lateral abdominal hernia. Small free fluid. Moderate pleural effusions. Partially imaged marked cardiomegaly. Additional findings as above.
[2017-05-08 13:15] VITALS: BP 169/78; PULSE 86; RESP 20
--- NOTE | 2017-05-11 18:00 | CARD ---
APPROVED REPORT EKG Measurement Heart [id number] <Conclusion> Atrial fibrillation Abnormal ECG
--- NOTE | 2017-05-11 18:17 | CARD ---
APPROVED REPORT EKG Measurement Heart [id number] <Conclusion> Atrial fibrillation Abnormal ECG
== END 2017-05-08 13:20 | disposition home or self-care (01) ==
LOC: C.ER 09:00
DX: K43.9 Ventral hernia without obstruction or gangrene (principal); R10.9 Unspecified abdominal pain; E03.9 Hypothyroidism, unspecified; I10 Essential (primary) hypertension; I48.91 Unspecified atrial fibrillation
CPT/HCPCS: 74177; 80053; 80162; 85025; 85610; 99285; J7040; Q9967

== ENCOUNTER 2018-06-14 15:18 | Emergency (ER) | payer MEDICARE, OTHER ==
[2018-06-14 15:18] VITALS: PULSE 63; BMI 29.5
--- NOTE | 2018-06-14 17:45 | C.PDOC ---
History Of Present Illness CC abdominal pain HPI: Patient is a 83 year old female with history of hypothyroidism, Atrial fibrillation, HTN, hiatal hernia who presents for 2 day history of worsening lower abdominal pain that has become more constant today. She describes her pain as burning constant pain. She has a normal bowel movement this morning. She has not had any vomiting, although she states she felt mild nausea this morning. She denies fevers, chills, headache, dizziness, chest pain, shortness of breath, palpitations, urinary symptoms, leg pain. She states that she was referred to a surgeon a few months ago, but she was told that she needed to be cleared by cardiology before she could have surgery. She states she had tests with her staff research scientist done recently, however she states she has not received the results of her tests yet. PMH: Atrial fibrillation, abdominal hernia, hypothyroidism, HTN, hiatal hernia PSH: hernia repair at [facility], hysterectomy, appendectomy Home meds: Metoprolol 50mg daily, Xarelto 20mg, Digoxin 125mg, Losartan-HCTZ 100mg, Levothyroxine 100mcg, Vit D cap Allergies: NKDA Social hx: denies smoking, alcohol, or drug use. 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 PMD: Dr. Gaffney Jewel Bearing Broacher: Dr. Scar Pardo [phone] <Shital Bunch - Last Filed: 06/14/18 22:04> <Shital Bunch - Last Filed: 06/14/18 22:04> <Kyle Mcgee - Last Filed: 06/15/18 00:06> Time Seen by Provider: 06/14/18 17:11 Chief Complaint (Nursing): Abdominal Pain Past Medical History Vital Signs: Last Vital Signs Temp 98.4 F 06/14/18 17:09 Pulse 75 06/14/18 17:09 Resp 16 06/14/18 15:33 BP 143/83 06/14/18 17:09 Pulse Ox 98 06/14/18 17:09 - Medical History PMH: Atrial Fibrillation, Cardia Arrhythmia, Hiatal Hernia, HTN, Hyperthyroidism, Hypothyroidism Denies: Chronic Kidney Disease Surgical History: Hernia Repair Family History: States: Unknown Family Hx - Social History Hx Tobacco Use: No Hx Alcohol Use: No Hx Substance Use: No - Immunization History Hx Tetanus Toxoid Vaccination: No Hx Influenza Vaccination: No Hx Pneumococcal Vaccination: No <Shital Bunch - Last Filed: 06/14/18 22:04> Vital Signs: Last Vital Signs Temp 98.5 F 06/14/18 22:13 Pulse 71 06/14/18 22:13 Resp 16 06/14/18 22:13 BP 148/79 06/14/18 22:13 Pulse Ox 99 06/14/18 22:13 <Kyle Mcgee - Last Filed: 06/15/18 00:06> Review Of Systems Constitutional: Negative for: Fever, Chills, Weakness, Malaise Cardiovascular: Negative for: Chest Pain, Palpitations, Edema, Light Headedness Respiratory: Negative for: Cough, Shortness of Breath, Wheezing Gastrointestinal: Negative for: Nausea, Vomiting, Abdominal Pain, Diarrhea Genitourinary: Negative for: Dysuria, Frequency Musculoskeletal: Negative for: Neck Pain, Shoulder Pain Skin: Negative for: Rash Neurological: Negative for: Weakness, Numbness, Confusion, Seizures Psych: Negative for: Anxiety, Depression <Shital Bunch - Last Filed: 06/14/18 22:04> Physical Exam - Physical Exam Appears: Well, Non-toxic, No Acute Distress Skin: Warm, Dry Head: Atraumatic, Normacephalic Eye(s): bilateral: PERRL, EOMI Ear(s): Left: Normal Nose: Normal Oral Mucosa: Moist Tongue: Normal Appearing Throat: Normal Neck: Normal Chest: Symmetrical, No Tenderness Cardiovascular: Rhythm Irregular (Irregularly irregular), No Friction Rub, No Murmur, No JVD Respiratory: Normal Breath Sounds, No Rales, No Rhonchi, No Stridor, No Wheezing Gastrointestinal/Abdominal: Bowel Sounds, Soft, Tenderness (Lower abdominal tenderness ), No Guarding, No Rebound, No Ascites Back: No CVA Tenderness Extremity: No Tenderness, No Pedal Edema, No Calf Tenderness Pulses: Left Dorsalis Pedis: Normal, Right Dorsalis Pedis: Normal Neurological/Psych: Oriented x3, Normal Speech, Normal Cognition <Shital Bunch - Last Filed: 06/14/18 22:04> ED Course And Treatment - Laboratory Results Result Diagrams: 06/14/18 18:08 06/14/18 18:08 O2 Sat by Pulse Oximetry: 98 - CT Scan/US Abdominal CT/US Interpretation: Abdomen and pelvis CT: The gallbladder contains multiple calcified gallstones. Broad based ventral abdominal hernia containing non- obstructed loops of bowel. Small fat containing right inguinal hernia. Status post complete hysterectomy. Heart is severely enlarged. Pulmonary venous congestive changes. <Shital Bunch - Last Filed: 06/14/18 22:04> - Laboratory Results Result Diagrams: 06/14/18 18:08 06/14/18 18:08 Lab Results: PT 16.5 SECONDS (9.7-12.2) H 06/14/18 18:08 INR 1.5 06/14/18 18:08 APTT 37 SECONDS (21-34) H 06/14/18 18:08 Total Bilirubin 1.4 mg/dL (0.2-1.3) H 06/14/18 18:08 AST 23 U/L (14-36) 06/14/18 18:08 ALT 25 U/L (9-52) 06/14/18 18:08 Alkaline Phosphatase 101 U/L (38-126) 06/14/18 18:08 Total Protein 7.0 g/dL (6.3-8.3) 06/14/18 18:08 Albumin 4.3 g/dL (3.5-5.0) 06/14/18 18:08 Globulin 2.7 gm/dL (2.2-3.9) 06/14/18 18:08 Albumin/Globulin Ratio 1.6 (1.0-2.1) 06/14/18 18:08 Lipase 77 U/L (23-300) 06/14/18 18:08 Urine Color Yellow (YELLOW) 06/14/18 19:04 Urine Clarity Clear (Clear) 06/14/18 19:04 Urine pH 6.0 (5.0-8.0) 06/14/18 19:04 Ur Specific [place] 1.018 (1.003-1.030) 06/14/18 19:04 Urine Protein Negative mg/dL (NEGATIVE) 06/14/18 19:04 Urine Glucose (UA) Normal mg/dL (Normal) 06/14/18 19:04 Urine Ketones Negative mg/dL (NEGATIVE) 06/14/18 19:04 Urine Blood Trace (NEGATIVE) H 06/14/18 19:04 Urine Nitrate Negative (NEGATIVE) 06/14/18 19:04 Urine Bilirubin Negative (NEGATIVE) 06/14/18 19:04 Urine Urobilinogen Normal mg/dL (0.2-1.0) 06/14/18 19:04 Ur Leukocyte Esterase Trace Brigido/uL (Negative) 06/14/18 19:04 Urine WBC (Auto) 5 /hpf (0-5) 06/14/18 19:04 Urine RBC (Auto) 2 /hpf (0-3) 06/14/18 19:04 <Kyle Mcgee - Last Filed: 06/15/18 00:06> Medical Decision Making Medical Decision Making: CBC, CMP, coags, lipase, UA ordered Abdomen CT ordered. Patient made aware of labwork and CT findings, patient agreeable to go home. <Shital Bunch - Last Filed: 06/14/18 22:04> Medical Decision Making: pt seen with [facility]. c/o ofpain to hernia. large ventral hernia. seen by surgical team. agreeable to go home and cont outpt managment. labs neg. no eo of incarceration stragulation. <Kyle Mcgee - Last Filed: 06/15/18 00:06> Disposition - Disposition Disposition Time: 22:00 <Shital Bunch - Last Filed: 06/14/18 22:04> <Kyle Mcgee - Last Filed: 06/15/18 00:06> - Disposition Referrals: Garrison Guidry Jr., MD [Staff Provider] - Disposition: HOME/ ROUTINE Condition: STABLE Additional Instructions: return to er with worsening symptoms or concerns. please follow up with specialsit. Instructions: Acute Abdomen (Belly Pain), Abdominal Hernia (DC) Forms: [employer] ([place]an) - Clinical Impression Clinical Impression: Abdominal hernia, Abdominal pain
[2018-06-14 18:20] LABS: BASO % 0.8 % (0.0-2.0); EOS # 0.1 K/uL (0.0-0.7); EOS % 1.8 % (0.0-4.0); LYMPH # 1.1 K/uL (1.0-4.3); LYMPH % 22.7 % (20.0-40.0); MEAN CELL VOLUME 95.5 fL (81.0-99.0); MEAN CORPUSCULAR HGB CONC 34.5 g/dL (33.0-37.0); MEAN PLATELET VOLUME 8.9 fL (7.2-11.7); MONO # 0.4 K/uL (0.0-0.8); MONO % 7.7 % (0.0-10.0); NEUT # 3.4 K/uL (1.8-7.0); NRBC % 0.1 % (0.0-2.0); RBC 4.54 Mil/uL (3.80-5.20); RED CELL DISTRIBUTION WIDTH 13.7 % (11.5-14.5); WHITE BLOOD COUNT 5.1 K/uL (4.8-10.8)
[2018-06-14 18:26] LABS: ALB/GLOB RATIO 1.6 (1.0-2.1); ALBUMIN 4.3 g/dL (3.5-5.0); ALT/SGPT 25 U/L (9-52); AST/SGOT 23 U/L (14-36); BLOOD UREA NITROGEN 16 mg/dL (7-17); CALCIUM 9.7 mg/dl (8.6-10.4); GFR NON-AFRICAN AMERICAN > 60; LIPASE 77 U/L (23-300)
[2018-06-14 18:29] LABS: INR 1.5; PROTHROMBIN TIME 16.5 SECONDS (9.7-12.2)
[2018-06-14] MEDS ORDERED: Iohexol 300 100 ML IJ ONE (19:08)
[2018-06-14 19:48] LABS: URINE BILIRUBIN NEGATIVE (NEGATIVE); URINE CLARITY Clear (Clear); URINE COLOR Yellow (YELLOW); URINE GLUCOSE (UA) NORMAL (Normal); URINE LEUKOCYTE ESTERASE TRACE Leu/uL (Negative); URINE PROTEIN NEGATIVE (NEGATIVE); URINE UROBILINOGEN NORMAL mg/dL (0.2-1.0)
[2018-06-14 20:27] LABS: URINE BLOOD TRACE (NEGATIVE)
[2018-06-14 22:14] VITALS: BP 148/79; PULSE 71; RESP 16; TEMP 98.5; O2SAT 99
--- NOTE | 2018-06-15 08:24 | CT ---
Date of service: 06/14/2018 PROCEDURE: CT Abdomen and Pelvis with contrast HISTORY: abd pain h/o of hernia COMPARISON: 05/08/2017 TECHNIQUE: Contrast dose: Radiation dose: Total exam DLP = 672.03 mGy-cm. This CT exam was performed using one or more of the following dose reduction techniques: Automated exposure control, adjustment of the mA and/or kV according to patient size, and/or use of iterative reconstruction technique. FINDINGS: LOWER THORAX: Cardiomegaly with bilateral interstitial changes. LIVER: Unremarkable. No gross lesion or ductal dilatation. GALLBLADDER AND BILE DUCTS: Gallstones PANCREAS: Unremarkable. No gross lesion or ductal dilatation. SPLEEN: Unremarkable. ADRENALS: Unremarkable. No mass. KIDNEYS AND URETERS: Unremarkable. No hydronephrosis. No solid mass. VASCULATURE: Unremarkable. No aortic aneurysm. No aortic atherosclerotic calcification or mural plaque present. BOWEL: Broad-based ventral abdominal hernia containing nonobstructed bowel loops. APPENDIX: Normal appendix. PERITONEUM: Unremarkable. No free fluid. No free air. LYMPH NODES: Unremarkable. No enlarged lymph nodes. BLADDER: Unremarkable. REPRODUCTIVE: Hysterectomy. BONES: No acute fracture. OTHER FINDINGS: None. IMPRESSION: Gallstones. Broad-based ventral abdominal hernia containing nonobstructed bowel loops. Hysterectomy.
== END 2018-06-14 22:14 | disposition home or self-care (01) ==
LOC: C.ER 15:18
DX: K43.9 Ventral hernia without obstruction or gangrene (principal); R10.30 Lower abdominal pain, unspecified
CPT/HCPCS: 74177; 80053; 80162; 81001; 83690; 85025; 85610; 85730; 99285; Q9967